=== PATIENT | male | born 1985 | race Caucasian/White ===

== ENCOUNTER 2019-08-31 19:12 | Emergency (ER) | payer OTHER ==
[~2019-08-31] VITALS: Ht 170.2 cm; Wt 83.9 kg
[2019-08-31] MEDS ORDERED: AUGMENTIN 875-1 EACH PO (19:50)
[2019-08-31 21:16] VITALS: BP 144/87
== END 2019-08-31 21:18 | disposition home or self-care (01) ==
LOC: ER 19:12
DX: S80.811A Abrasion, right lower leg, initial encounter (principal); W54.0XXA Bitten by dog, initial encounter; Y93.89 Activity, other specified; Y92.89 Other specified places as the place of occurrence of the external cause; Y99.8 Other external cause status

== ENCOUNTER 2019-09-03 11:15 | Emergency (ER) | payer OTHER ==
[~2019-09-03] VITALS: Ht 170.2 cm; Wt 77.1 kg
[~2019-09-03 11:15] MED LIST: AUGMENTIN 875-1 EACH PO
== END 2019-09-03 12:45 | disposition home or self-care (01) ==
LOC: ER 11:15
DX: Z23 Encounter for immunization (principal)

== ENCOUNTER 2019-09-07 17:35 | Emergency (ER) | payer OTHER ==
[~2019-09-07] VITALS: Ht 170.2 cm; Wt 77.1 kg
[2019-09-07 19:35] VITALS: BP 146/84
== END 2019-09-07 19:35 | disposition home or self-care (01) ==
LOC: ER 17:35
DX: S81.851D Open bite, right lower leg, subsequent encounter (principal); Z23 Encounter for immunization; W54.0XXD Bitten by dog, subsequent encounter

== ENCOUNTER 2019-09-14 21:09 | Emergency (ER) | payer OTHER ==
[~2019-09-14] VITALS: Ht 170.2 cm; Wt 81.7 kg
[2019-09-14 21:37] VITALS: BP 135/83
== END 2019-09-14 21:38 | disposition home or self-care (01) ==
LOC: ER 21:09
DX: Z23 Encounter for immunization (principal)